=== PATIENT | male | born 1980 | race Caucasian/White ===

== ENCOUNTER 2024-01-08 10:55 | Emergency (ER) | payer SELFPAY ==
[~2024-01-08 10:55] MED LIST: Iopamidol 370 76% 100 ML VIAL ONE
[2024-01-08] MEDS ORDERED: Ondansetron PF 4 MG/2 ML Vial ONE (11:47)
[2024-01-08] MEDS ORDERED: Lactated Ringer's 1,000 ML ONE (11:47)
[2024-01-08] MEDS ORDERED: Ketorolac Tromethamine 30 MG (1 mL) VIAL ONE (11:47)
[2024-01-08 11:51] LABS: #Basophils 0.1 thou/uL (0.0-0.2); #Eosinphils 0.3 thou/uL (0.0-0.7); #Monocytes 0.7 thou/uL (0.11-0.59); #Neutrophils 4.7 thou/uL (1.40-6.50); %Basophils 1.6 % (0.0-1.0); %Eosinophils 2.9 % (0.0-10.0); %Monocytes 8.2 % (0.0-10.0); %Neutrophils 53.2 % (42.0-75.0); Hematocrit 51.2 % (42.0-52.0); Hemoglobin 15.5 g/dL (14.0-18.0); Mean Corpuscular HGB CONC 30.2 g/dL (32.0-36.0); Mean Corpuscular Hemoglobin 27.6 pg (27.0-31.0); Mean Corpuscular Volume 91.5 fl (78.0-98.0); Mean Platelet Volume 6.6 fL (7.4-10.4); Platelet Count 261 10x3/uL (130-400); White Blood Cell (WBC) Count 8.8 10x3/uL (4.8-10.8)
[2024-01-08 11:58] LABS: MONO NEGATIVE CONTROL ZONE White (Negative) (White); MONO POSITIVE CONTROL Pink Line (Positive) (PINK/RED); Mononucleosis NEGATIVE (NEGATIVE)
[2024-01-08 12:08] LABS: ALT (SGPT) 31 U/L (8-55); AST (SGOT) 17 U/L (5-34); Albumin 4.6 g/dL (3.5-5.0); Alkaline Phosphatase 96 U/L (40-110); Anion Gap 15 mmol/L (10-20); BUN (Urea Nitrogen) 12 mg/dL (8.9-20.6); Bilirubin, Total 0.5 mg/dL (0.2-1.2); Calc. Creatinine Clearance 0 mL/min (70-130); Calcium 10.3 mg/dL (7.8-10.44); Carbon Dioxide 28 mmol/L (22-29); Chloride 101 mmol/L (98-107); Estimated GFR 104; Globulin 3.5 g/dL (2.4-3.5); Glucose 103 mg/dL (70-105); Potassium 4.1 mmol/L (3.5-5.1); Protein, Total 8.1 g/dL (6.0-8.3); Sodium 140 mmol/L (136-145)
== END 2024-01-08 13:21 | disposition home or self-care (01) ==
LOC: MADERS 10:55
DX: J38.7 Other diseases of larynx (principal)
CPT/HCPCS: 70491; 80053; 83605; 85025; 86308; 87040; 87081; 87430; 94760; 96374; 96375; J1885; J2405; J7120; Q9967